=== PATIENT | male | born 1980 | race Caucasian/White ===

== ENCOUNTER 2017-10-02 14:07 | Emergency (ER) ==
[2017-10-02 14:22] VITALS: BP 137/78; TEMP 98.6; BMI 23.8
--- NOTE | 2017-10-02 14:23 | ED.PDOC ---
General ED Provider: Dr. ROSALINE SHAW Chief Complaint: Hand Pain/Injury Stated Complaint: Rt Wrist, hand and Thumb pain;Weight loss Time Seen by Physician: 14:15 Mode of Arrival: Walk-In Information Source: Patient Exam Limitations: No limitations Nursing and Triage Documentation Reviewed and Agree: Yes Reviewed sepsis parameters & appropriate labs ordered?: Yes System Inflammatory Response Syndrome: Not Applicable Sepsis Protocol: For patient's 13 years and over: Temp is 96.8 and below OR 101 and greater Pulse >90 BPM Resp >20/minute Acutely Altered Mental Status Are patient's symptoms suggestive of a new infection, such as: -Pneumonia -Skin, Soft Tissue -Endocarditis -UTI -Bone, Joint Infection -Implantable Device -Acute Abdominal Infection -Wound Infection -Meningitis -Blood Stream Catheter Infection -Unknown System Inflammatory Response Syndrome: Not Applicable Review of Systems - Review Of Systems Constitutional: Reports: No symptoms Eyes: Reports: No symptoms Ears, Nose, Mouth, Throat: Reports: No symptoms Respiratory: Reports: No symptoms Cardiac: Reports: No symptoms GI: Reports: No symptoms : Reports: No symptoms Musculoskeletal: Reports: Joint pain Skin: Reports: No symptoms Neurological: Reports: No symptoms Endocrine: Reports: No symptoms Hematologic/Lymphatic: Reports: No symptoms All Other Systems: Reviewed and Negative Past Medical History - Past Medical History Previously Healthy: Yes Endocrine: Reports: None Cardiovascular: Reports: None Respiratory: Reports: None Hematological: Reports: None Gastrointestinal: Reports: None Genitourinary: Reports: None Neuro/Psych: Reports: None Musculoskeletal: Reports: None Cancer: Reports: None - Surgical History General Surgical History: Reports: None - Family History Family History: Reports: None - Social History Smoking Status: Current every day smoker, Heavy tobacco smoker Hx Substance Use: Yes (RECOVERING ALCOHOLIC, MARIJUANA) Alcohol Screening: None Physical Exam - Physical Exam Appearance: Well-appearing, No pain distress, Well-nourished Ill-appearing: None Pain Distress: None Eyes: AMARI, EOMI, Conjunctiva clear ENT: Ears normal, Nose normal, Oropharynx normal Respiratory: Airway patent, Breath sounds clear, Breath sounds equal, Respirations nonlabored Cardiovascular: RRR, Pulses normal, No rub, No murmur GI/: Soft, Nontender, No masses, Bowel sounds normal, No Organomegaly Musculoskeletal: Normal strength, ROM intact, No edema, No calf tenderness, Limited strength (tenderness over dorsum Rt radial carpal joint, rt forearm lat epicondyle no edema or discoloratin ) Skin: Warm, Dry, Normal color Neurological: Sensation intact, Motor intact, Reflexes intact, Cranial nerves intact, Alert, Oriented Psychiatric: Affect appropriate, Mood appropriate Interpretation - Radiology Interpretation Radiology Interpretation By: Radiologist Radiology Results: No acute changes Critical Care Note - Critical Care Note Total Time (mins): 0 Course - Course Hematology/Chemistry: 10/02/17 14:45 10/02/17 14:45 Orders, Labs, Meds: Lab Review 10/02/17 10/02/17 14:45 14:45 WBC 10.54 H RBC 5.19 Hgb 15.3 Hct 45.1 MCV 86.9 MCH 29.5 MCHC 33.9 RDW Coeff of Walt 14.6 Plt Count 365 Immature Gran % (Auto) 0.3 Neut % (Auto) 58.3 Lymph % (Auto) 31.0 Toombs % (Auto) 9.1 Eos % (Auto) 0.9 Baso % (Auto) 0.4 Immature Gran # (Auto) 0.0 Neut # (Auto) 6.2 Lymph # (Auto) 3.3 Toombs # (Auto) 1.0 Eos # (Auto) 0.1 Baso # (Auto) 0.0 Sodium 140 Potassium 4.2 Chloride 110 H Carbon Dioxide 22 Anion Gap 12.2 BUN 11 Creatinine 0.82 Estimated GFR (MDRD) 105.00 BUN/Creatinine Ratio 13.41 Glucose 91 Calcium 9.4 Total Bilirubin 0.5 AST 13 L ALT 7 L Alkaline Phosphatase 84 Total Protein 7.4 Albumin 3.5 Globulin 3.9 Albumin/Globulin Ratio 0.90 Orders Category Date Time Status CBC W/ AUTO DIFF Stat LAB 10/02/17 14:45 Completed CMP [COMPREHENSIVE METABOLIC PANEL] Stat LAB 10/02/17 14:45 Completed HAND, RIGHT 3 VIEWS Stat RADS 10/02/17 14:24 Completed WRIST, RIGHT 3 VIEWS Stat RADS 10/02/17 14:24 Completed Vital Signs: Temp Pulse Resp BP Pulse Ox 10/02/17 14:07 98.6 F 74 18 137/78 97 Departure - Departure Time of Disposition: 15:00 Disposition: HOME SELF-CARE Discharge Problem: Strain of wrist, right, Metal foreign body in hand Instructions: Wrist Injury (ED), Wrist Sprain (ED), Soft Tissue Foreign Body ( ED) Condition: Good Pt referred to PMD for follow-up: Yes (dr zimmerman) IPMP verified?: No Additional Instructions: Take Ibuprofen 600 mg 4 times daily for relief of pain Wear split forearm and wrist daily Seek follow up care Dr Leal Allergies/Adverse Reactions: Allergies No Known Allergies Allergy (Verified 10/02/17 14:11) Home Medications: Ambulatory Orders Aspirin [Aspirin Chewable] 81 mg PO DAILYWM 10/02/17 Escitalopram Oxalate [Lexapro] 20 mg PO DAILY 10/02/17 Hydroxyzine HCl 50 mg PO BEDTIME 10/02/17 Ibuprofen [Motrin] 600 mg PO Q12H 10/02/17 Disposition Discussed With: Patient
--- NOTE | 2017-10-02 14:43 | DI ---
EXAM: Three views of the right wrist. History: Right wrist pain. Comparison: Right hand radiograph 10/02/2017 Findings: No acute fracture or dislocation. Joint spaces are preserved. 2 mm metallic foreign body seen within the soft tissues of the distal third digit. Impression: 1. No acute osseous abnormality. 2. Metallic foreign body within the soft tissues of the distal third digit.
--- NOTE | 2017-10-02 14:46 | DI ---
EXAM: Three views of the right hand. History: Right hand pain. Findings: No acute fracture or dislocation. Joint spaces are preserved. 2 mm metallic foreign body within the ventral soft tissues of the distal third digit. Impression: 1. No acute osseous abnormality. 2. Metallic foreign body within the ventral soft tissues of the distal third digit.
== END 2017-10-02 15:37 | disposition home or self-care (01) ==
LOC: ED 14:07
DX: S63.501A Unspecified sprain of right wrist, initial encounter (principal); M79.5 Residual foreign body in soft tissue; X50.9XXA Other and unspecified overexertion or strenuous movements or postures, initial encounter; F17.210 Nicotine dependence, cigarettes, uncomplicated
CPT/HCPCS: 36415; 80053; 85025; 99282

== ENCOUNTER 2017-10-17 08:05 | Outpatient (CLI) ==
--- NOTE | 2017-10-17 09:24 | US ---
EXAM: Ultrasound abdomen limited HISTORY: Right upper quadrant pain COMPARISON: None TECHNIQUE: Limited ultrasound abdomen right upper quadrant was performed FINDINGS: Visualized portion pancreas appears normal. Portions of the pancreas obscured secondary b owel gas shadowing. Liver normal in size and echogenicity. Main portal vein patent with direction o f flow. No shadowing gallstones. Focal comet-tail artifact about the gallbladder wall, suggestive o f mild focal adenomyomatosis. No gallbladder wall thickening or pericholecystic fluid. No biliary d uct dilation with common bile duct measuring 0.3 cm. Right kidney measures 10.4 cm in length without hydronephrosis. IMPRESSION: Findings suggesting mild focal adenomyomatosis. No cholelithiasis.
== END 2017-10-17 08:06 | disposition home or self-care (01) ==
LOC: RAD 08:05
PROVIDERS: ATTEND Family Medicine
DX: R10.11 Right upper quadrant pain (principal); R16.0 Hepatomegaly, not elsewhere classified